=== PATIENT | male | born 1960 | race Caucasian/White ===

== ENCOUNTER 2020-11-16 05:47 | Inpatient (IN) | payer BC ==
[~2020-11-16] VITALS: Ht 177.8 cm; Wt 120.6 kg
[2020-11-16] MEDS ORDERED: OXYC-307 PO (06:58)
[2020-11-16] MEDS ORDERED: WELLBUTRIN PO (06:58)
[2020-11-16] MEDS ORDERED: CELE100C PO (06:58)
[2020-11-16] MEDS ORDERED: PREG100C PO (06:58)
[2020-11-16] MEDS ORDERED: DULO30CA2 PO (06:58)
[2020-11-16] MEDS ORDERED: OXYCODONE PO (06:58)
[2020-11-16] MEDS ORDERED: METFORMIN PO (06:58)
[2020-11-16] MEDS ORDERED: LACTATED RINGERS 1,000 ML IV SCH (07:00)
[2020-11-16] MEDS ORDERED: CHLORHEXIDINE 15 ML UDC MM ONE (07:00)
[2020-11-16 07:19] VITALS: BP 134/90
[2020-11-16] MEDS ORDERED: VENTOLIN INH (07:42)
[2020-11-16] MEDS ORDERED: TIOT18CA INH (07:42)
[2020-11-16] MEDS ORDERED: PROVIGIL PO (07:42)
[2020-11-16] MEDS ORDERED: FENTANYL PF 250 MCG/5ML ONE (08:10)
[2020-11-16] MEDS ORDERED: MIDAZOLAM 1 MG/ML, 2ML ONE (08:10)
[2020-11-16] MEDS ORDERED: KETAMINE 10 MG/ML, 20ML ONE (09:49)
[2020-11-16] MEDS ORDERED: HYDROmorphone 2 MG/ML, 1ML ONE (09:49)
[2020-11-16] MEDS ORDERED: LIDOCAINE PF 2%, 5ML ONE (10:01)
[2020-11-16] MEDS ORDERED: ROCURONIUM 10 MG/ML,10ML ONE (10:01)
[2020-11-16] MEDS ORDERED: CEFAZOLIN 1,000 MG ONE (10:01)
[2020-11-16] MEDS ORDERED: ONDANSETRON 2MG/ML, 2ML ONE (10:01)
[2020-11-16] MEDS ORDERED: PROPOFOL 10 MG/ML, 20ML ONE (10:01)
[2020-11-16] MEDS ORDERED: SUGAMMADEX 200 MG/2 ML IVPush ONE (10:01)
[2020-11-16] MEDS ORDERED: PHENYLEPHRINE 10 MG/ML ONE (10:01)
[2020-11-16] MEDS ORDERED: DEXAMETHASONE 4 MG/ML, 1ML ONE (10:01)
[2020-11-16] MEDS ORDERED: hydrALAzine 20 MG/ML, 1ML ONE (10:01)
[2020-11-16] MEDS ORDERED: VANCOMYCIN 1,000 MG IM ONE (10:55)
[2020-11-16] MEDS ORDERED: LIDOCAINE 0.5%-EPI 1:200K, 50ML INFIL ONE (10:55)
[2020-11-16] MEDS ORDERED: ALBUTEROL SULFATE 2.5 MG/3 ML NPPB PRN (14:00)
[2020-11-16] MEDS ORDERED: ONDANSETRON 2MG/ML, 2ML IVPush PRN (14:00)
[2020-11-16] MEDS ORDERED: KETOROLAC 30 MG/1 ML IV PRN (14:00)
[2020-11-16] MEDS ORDERED: hydrALAzine 20 MG/ML, 1ML IV PRN (14:00)
[2020-11-16] MEDS ORDERED: MEPERIDINE/PF 25MG/0.5ML IVPush PRN (14:00)
[2020-11-16] MEDS ORDERED: OXYcodone 5 MG/5 ML ORAL.SOL UDC PO PRN (14:00)
[2020-11-16] MEDS ORDERED: METOCLOPRAMIDE 5 MG/ML, 2ML IVPush PRN (14:00)
[2020-11-16] MEDS ORDERED: METOPROLOL 1 MG/ML, 5ML IV PRN (14:00)
[2020-11-16] MEDS ORDERED: ACETAMINOPHEN 325 MG TABLET PO PRN (14:00)
[2020-11-16] MEDS ORDERED: LABETALOL 5MG/ML, 20ML IV PRN (14:00)
[2020-11-16] MEDS ORDERED: HALOPERIDOL 5 MG/ML IV PRN (14:00)
[2020-11-16] MEDS ORDERED: HYDROmorphone 1 MG/ML, 1ML INJ IVPush PRN (14:00)
[2020-11-16] MEDS ORDERED: ALBUTEROL/IPRATROPIUM 2.5MG/0.5MG, 3 ML NPPB PRN (14:00)
[2020-11-16] MEDS ORDERED: PROMETHAZINE 12.5 MG SUPP PR PRN (14:00)
[2020-11-16] MEDS ORDERED: EPHEDRINE 50 MG/ML, 1ML IVPush PRN (14:00)
[2020-11-16] MEDS ORDERED: METHOCARBAMOL 1,000 MG in DEXTROSE 5% 100 ML IV ONE (14:00)
[2020-11-16] MEDS ORDERED: ACETAMINOPHEN 650 MG/20.3 ML UDC ONE (14:02)
[2020-11-16] MEDS ORDERED: FENTANYL PF 100 MCG/2ML ONE (14:02)
[2020-11-16] MEDS ORDERED: OXYcodone 5 MG/5 ML ORAL.SOL UDC ONE (14:02)
[2020-11-16] MEDS: FENTANYL PF 100 MCG/2ML IV PRN ×3 (14:03→14:43)
[2020-11-16] MEDS ORDERED: KETOROLAC 30 MG/1 ML ONE (14:18)
[2020-11-16] MEDS ORDERED: PROMETHAZINE 25 MG/ML, 1ML IM PRN (16:00)
[2020-11-16] MEDS ORDERED: DIPHENHYDRAMINE 50 MG/ML, 1ML IM PRN (16:00)
[2020-11-16] MEDS ORDERED: DIPHENHYDRAMINE 50 MG/ML, 1ML IVPush PRN (16:00)
[2020-11-16] MEDS ORDERED: HYDROcodone/APAP 5/325 TABLET PO PRN (16:00)
[2020-11-16] MEDS ORDERED: SODIUM CHLORIDE 0.9% 1,000ML IV PRN (16:00)
[2020-11-16] MEDS ORDERED: PHARMACY MAY ADJ FOR RENAL FX MC PRN (16:00)
[2020-11-16] MEDS ORDERED: BISACODYL 10 MG SUPP PR PRN (16:00)
[2020-11-16] MEDS ORDERED: MAGNESIUM HYDROXIDE 8%, 30ML UDC PO PRN (16:00)
[2020-11-16] MEDS ORDERED: metFORMIN 500 MG TABLET PO SCH (17:00)
[2020-11-16] MEDS: OXYcodone IR 5MG TABLET PO PRN ×2 (17:10→20:57)
[2020-11-16] MEDS: SENNA/DOCUSATE TABLET PO SCH ×2 (17:10→20:52)
[2020-11-16] MEDS: CEFAZOLIN PMX 1GM/50ML 50 ML IVPB SCH (17:33)
[2020-11-16 19:03] VITALS: BP 133/76
[2020-11-16] MEDS: SODIUM CHLORIDE FLUSH 10ML SYR IVF SCH (20:49)
[2020-11-16] MEDS: D5%-0.9% NACL+KCL 20MEQ 1,000 ML IV SCH ×2 (20:49→23:48)
[2020-11-16] MEDS: PREGABALIN 100 MG CAPSULE PO SCH (20:52)
[2020-11-16] MEDS: BUPROPION 100 MG TABLET PO SCH (20:52)
[2020-11-16] MEDS: DULOXETINE 30 MG CAPSULE.DR PO SCH (20:52)
[2020-11-16] MEDS: METHOCARBAMOL 750 MG in DEXTROSE 5% 100 ML IV SCH (22:23)
[2020-11-16 23:47] VITALS: BP 131/82
[2020-11-16] MEDS: HYDROcodone/APAP 10/325 MG TABLET PO PRN (23:52)
[2020-11-17] MEDS: OXYcodone IR 5MG TABLET PO PRN ×7 (01:20→21:37)
[2020-11-17] MEDS: CEFAZOLIN PMX 1GM/50ML 50 ML IVPB SCH (02:10)
[2020-11-17] MEDS ORDERED: METFORMIN MC SCH (02:30)
[2020-11-17 03:36] VITALS: BP 108/66
[2020-11-17] MEDS: HYDROcodone/APAP 10/325 MG TABLET PO PRN ×5 (04:22→22:53)
[2020-11-17 05:28] LABS: BASOPHILS % (AUTO) 0 % (0-1); EOSINOPHILS % (AUTO) 0 % (1-7); LYMPHOCYTES % (AUTO) 11 % (22-44); MEAN CORPUSCULAR HEMOGLOBIN 33.6 pg (27.5-34.5); MEAN CORPUSCULAR HGB CONC 34.1 g/dL (33.2-36.2); MEAN PLATELET VOLUME 8.1 fL (7.4-10.4); MONOCYTES % (AUTO) 8 % (2-9); NEUTROPHILS % (AUTO) 82 % (42-75); PLATELET COUNT 173 x10^3/uL (130-400); RED BLOOD COUNT 3.76 x10^6/uL (4.38-5.82); RED CELL DISTRIBUTION WIDTH 13.8 % (9.4-14.8)
[2020-11-17 05:32] LABS: MD NO
[2020-11-17 05:33] LABS: ANION GAP 6 mmol/L (5-15); CALCIUM 8.5 mg/dL (8.5-10.1); CHLORIDE 101 mmol/L (98-107); CREATININE 1.01 mg/dL (0.7-1.3)
[2020-11-17] MEDS: METHOCARBAMOL 750 MG in DEXTROSE 5% 100 ML IV SCH ×3 (05:51→21:37)
[2020-11-17 07:24] VITALS: BP 97/55
[2020-11-17] MEDS ORDERED: metFORMIN 500 MG TABLET PO SCH (08:00)
[2020-11-17] MEDS: DULOXETINE 30 MG CAPSULE.DR PO SCH ×2 (08:35→20:42)
[2020-11-17] MEDS: PREGABALIN 100 MG CAPSULE PO SCH ×2 (08:35→20:42)
[2020-11-17] MEDS: SENNA/DOCUSATE TABLET PO SCH ×3 (08:35→20:41)
[2020-11-17] MEDS: BUPROPION 100 MG TABLET PO SCH ×2 (08:35→20:42)
[2020-11-17] MEDS: SODIUM CHLORIDE FLUSH 10ML SYR IVF SCH ×2 (08:37→21:35)
[2020-11-17] MEDS: NICOTINE 14MG/24 HR PATCH.TD24 TD SCH (13:35)
[2020-11-17 14:09] VITALS: BP 105/63
[2020-11-17] MEDS: MORPHINE SULFATE 4 MG/ML, 1ML IVPush PRN (14:49)
[2020-11-17] MEDS ORDERED: METHOCARBAMOL 1,000 MG in DEXTROSE 5% 100 ML IV ONE (16:00)
[2020-11-17] MEDS: D5%-0.9% NACL+KCL 20MEQ 1,000 ML IV SCH (16:51)
[2020-11-17] MEDS: metFORMIN 500 MG TABLET PO SCH (17:30)
[2020-11-17 19:30] VITALS: BP 118/74
[2020-11-18] MEDS: OXYcodone IR 5MG TABLET PO PRN ×5 (00:38→21:01)
[2020-11-18 00:45] VITALS: BP 120/74
[2020-11-18] MEDS: MORPHINE SULFATE 4 MG/ML, 1ML IVPush PRN ×2 (01:33→23:04)
[2020-11-18] MEDS: D5%-0.9% NACL+KCL 20MEQ 1,000 ML IV SCH ×3 (03:00→23:00)
[2020-11-18] MEDS: HYDROcodone/APAP 10/325 MG TABLET PO PRN ×5 (03:29→22:15)
[2020-11-18 05:45] LABS: BASOPHILS % (AUTO) 1 % (0-1); EOSINOPHILS % (AUTO) 2 % (1-7); LYMPHOCYTES % (AUTO) 13 % (22-44); MEAN CORPUSCULAR HEMOGLOBIN 33.9 pg (27.5-34.5); MEAN CORPUSCULAR HGB CONC 34.3 g/dL (33.2-36.2); MEAN PLATELET VOLUME 8.1 fL (7.4-10.4); MONOCYTES % (AUTO) 11 % (2-9); NEUTROPHILS % (AUTO) 73 % (42-75); PLATELET COUNT 159 x10^3/uL (130-400); RED BLOOD COUNT 3.96 x10^6/uL (4.38-5.82); RED CELL DISTRIBUTION WIDTH 14.1 % (9.4-14.8)
[2020-11-18 05:49] LABS: ANION GAP 3 mmol/L (5-15); CHLORIDE 103 mmol/L (98-107); CREATININE 0.85 mg/dL (0.7-1.3)
[2020-11-18] MEDS: METHOCARBAMOL 750 MG in DEXTROSE 5% 100 ML IV SCH ×2 (06:26→13:17)
[2020-11-18 06:40] LABS: MD NO
[2020-11-18 07:58] VITALS: BP 127/72
[2020-11-18] MEDS: SENNA/DOCUSATE TABLET PO SCH ×3 (08:15→21:02)
[2020-11-18] MEDS: BUPROPION 100 MG TABLET PO SCH ×2 (08:16→21:02)
[2020-11-18] MEDS: PREGABALIN 100 MG CAPSULE PO SCH ×2 (08:16→21:02)
[2020-11-18] MEDS: DULOXETINE 30 MG CAPSULE.DR PO SCH ×2 (08:16→21:01)
[2020-11-18] MEDS: metFORMIN 500 MG TABLET PO SCH ×2 (08:16→16:28)
[2020-11-18] MEDS: SODIUM CHLORIDE FLUSH 10ML SYR IVF SCH ×2 (09:00→21:03)
[2020-11-18 12:30] VITALS: BP 136/86
[2020-11-18] MEDS: NICOTINE 14MG/24 HR PATCH.TD24 TD SCH (13:17)
[2020-11-18] MEDS: DIPHENHYDRAMINE 25 MG CAPSULE PO PRN (18:45)
[2020-11-18 20:34] VITALS: BP 125/75
[2020-11-18] MEDS: METHOCARBAMOL 750 MG TABLET PO SCH (21:01)
[2020-11-19 00:35] VITALS: BP 131/82
[2020-11-19] MEDS: OXYcodone IR 5MG TABLET PO PRN ×5 (00:36→20:31)
[2020-11-19] MEDS: HYDROcodone/APAP 10/325 MG TABLET PO PRN (04:33)
[2020-11-19] MEDS: METHOCARBAMOL 750 MG TABLET PO SCH ×3 (06:22→20:44)
[2020-11-19 07:52] VITALS: BP 135/83
[2020-11-19] MEDS: SENNA/DOCUSATE TABLET PO SCH ×3 (08:17→20:40)
[2020-11-19] MEDS: SODIUM CHLORIDE FLUSH 10ML SYR IVF SCH ×2 (08:17→20:39)
[2020-11-19] MEDS: PREGABALIN 100 MG CAPSULE PO SCH ×2 (08:17→20:40)
[2020-11-19] MEDS: DULOXETINE 30 MG CAPSULE.DR PO SCH ×2 (08:17→20:40)
[2020-11-19] MEDS: BUPROPION 100 MG TABLET PO SCH ×2 (08:17→20:40)
[2020-11-19] MEDS: metFORMIN 500 MG TABLET PO SCH ×2 (08:17→16:12)
[2020-11-19] MEDS: D5%-0.9% NACL+KCL 20MEQ 1,000 ML IV SCH ×2 (08:18→18:22)
[2020-11-19] MEDS: OXYcodone/APAP 10/325MG TABLET PO PRN ×2 (09:46→16:13)
[2020-11-19] MEDS: NICOTINE 14MG/24 HR PATCH.TD24 TD SCH (13:24)
[2020-11-19 13:44] VITALS: BP 138/67
[2020-11-19 19:54] VITALS: BP 141/80
[2020-11-19] MEDS: DIPHENHYDRAMINE 25 MG CAPSULE PO PRN (20:45)
[2020-11-20] MEDS: OXYcodone/APAP 10/325MG TABLET PO PRN ×3 (00:16→10:07)
[2020-11-20] MEDS: OXYcodone IR 5MG TABLET PO PRN ×3 (02:05→12:26)
[2020-11-20 02:19] VITALS: BP 139/88
[2020-11-20] MEDS: D5%-0.9% NACL+KCL 20MEQ 1,000 ML IV SCH (05:00)
[2020-11-20] MEDS: METHOCARBAMOL 750 MG TABLET PO SCH (05:42)
[2020-11-20 07:32] VITALS: BP 118/75
[2020-11-20] MEDS: DULOXETINE 30 MG CAPSULE.DR PO SCH (08:26)
[2020-11-20] MEDS: PREGABALIN 100 MG CAPSULE PO SCH (08:26)
[2020-11-20] MEDS: metFORMIN 500 MG TABLET PO SCH (08:26)
[2020-11-20] MEDS: SENNA/DOCUSATE TABLET PO SCH (08:26)
[2020-11-20] MEDS: BUPROPION 100 MG TABLET PO SCH (08:26)
[2020-11-20] MEDS ORDERED: OXYC-307 PO (08:42)
[2020-11-20] MEDS: SODIUM CHLORIDE FLUSH 10ML SYR IVF SCH (08:49)
== END 2020-11-20 13:20 | disposition home or self-care (01) | DRG 460 ==
LOC: ORIP 05:47 → 4NE 15:31 → DCLOUNGE 11-20 13:06
PROVIDERS: ADMIT Orthopaedic Surgery Orthopaedic Surgery of the Spine; ATTEND Orthopaedic Surgery Orthopaedic Surgery of the Spine
PROC: 01NB0ZZ Release Lumbar Nerve, Open Approach (ICD-10-PCS; 2020-11-16)
PROC: 0SG0071 Fusion of Lumbar Vertebral Joint with Autologous Tissue Substitute, Posterior Approach, Posterior Column, Open Approach (ICD-10-PCS; principal; 2020-11-16 07:30)
DX: M48.061 Spinal stenosis, lumbar region without neurogenic claudication (principal); M43.16 Spondylolisthesis, lumbar region
CPT/HCPCS: 36415; 72100; 80048; 82962; 85025; C1713; G0378; J0171; J0690; J1100; J1170; J1885; J2001; J2250; J2405; J2704; J3010; J3370; C1762; J0360; J2270; J2370; J2800; J7120; Q0163